=== PATIENT | male | born 1965 | race Caucasian/White ===

== ENCOUNTER 2016-08-25 23:30 | Emergency (ER) | payer SELFPAY ==
[~2016-08-25] VITALS: Ht 185.4 cm; Wt 94.5 kg
[2016-08-26 00:31] VITALS: BP 129/85
== END 2016-08-26 00:37 | disposition home or self-care (01) ==
LOC: EME 23:30
DX: N34.2 Other urethritis (principal); A64 Unspecified sexually transmitted disease; F17.200 Nicotine dependence, unspecified, uncomplicated
CPT/HCPCS: 81003; 99281; 99282; J0696